=== PATIENT | male | born 1980 | race Caucasian/White ===

== ENCOUNTER → 2019-03-31 15:17 | Outpatient (CLI) | payer OTHER, SELFPAY ==
--- NOTE | 2019-03-31 15:27 | US_ITS ---
STUDY: THYROID ULTRASOUND REASON FOR EXAM: Male, 39 years old. Thyroid enlargement TECHNIQUE: Ultrasound evaluation of the thyroid was performed with real-time and static cherry-scale imaging. COMPARISON: None. FINDINGS: RIGHT LOBE: The right lobe of the thyroid gland measures 5.0 x 1.7 x 1.5 cm. There is a homogeneous echotexture. There are no demonstrated solid, cystic or complex lesions. LEFT LOBE: The left lobe of the thyroid gland measures 4.6 x 1.1 x 1.7 cm. There is a homogeneous echotexture. There are no demonstrated solid, cystic or complex lesions. ISTHMUS: The isthmus measures 3 mm. The regional lymph nodes are normal. US/Thyroid IMPRESSION: No solid or cystic nodules. Electronically Signed: Blayne Swenson MD ([place]) at 16:49 EST , Service support ,
[2019-03-31 17:25] LABS: T4 Free Direct 0.98 ng/dL (0.76-1.46); Thyroid Stim Hormone (TSH) 1.09 uIU/mL (0.358-3.74)
== END ==
PROVIDERS: Family Provider Nurse Practitioner Family; PCP Nurse Practitioner Family; Referring Provider Nurse Practitioner Family; Visit Provider Nurse Practitioner Family
DX: E04.9 Nontoxic goiter, unspecified (principal)
CPT/HCPCS: 36415; 76536; 84439; 84443

== ENCOUNTER → 2019-06-09 16:38 | Outpatient (CLI) | payer OTHER, SELFPAY ==
[2019-06-09 15:27] VITALS: BMI 27.4
[2019-06-09 18:12] LABS: Follicle Stimulating Hormone 3.6 mIU/mL; Luteinizing Hormone 1.4 mIU/mL; Prolactin 8.4 ng/mL; Thyroid Stim Hormone (TSH) 1.23 uIU/mL (0.358-3.74)
[2019-06-13 12:07] LABS: Testosterone, Free 5.03 ng/dL (5.00-21.00)
[2019-06-13 18:46] LABS: Testosterone, % Free 3.62 % (1.50-4.20); Testosterone, Total 139 ng/dL (264-916)
== END ==
PROVIDERS: Family Provider Nurse Practitioner Family; PCP Nurse Practitioner Family; Referring Provider Internal Medicine Endocrinology, Diabetes & Metabolism; Visit Provider Internal Medicine Endocrinology, Diabetes & Metabolism
DX: N62 Hypertrophy of breast (principal)
CPT/HCPCS: 36415; 83001; 83002; 84146; 84402; 84403; 84443